=== PATIENT | female | born 1965 | race Caucasian/White ===

== ENCOUNTER 2019-10-24 07:36 | Emergency (ER) | payer OTHER ==
[~2019-10-24] VITALS: Ht 162.6 cm; Wt 122.7 kg
[2019-10-24 07:51] VITALS: BP 108/59
--- NOTE | 2019-10-24 07:52 | PHYS DOC ---
Past History Past Medical History: No Pertinent History Adult General Chief Complaint Chief Complaint: MULTIPLE TRAUMA/FALL HPI HPI Patient is a 54-year-old healthy female who presents status post fall Onset was half an hour prior to arrival, patient was jogging with her dog when the dog ran in front of her and tripped her. She fell on bilateral outstretched hands and subsequently hit her chin on pavement. No loss of consciousness reported Patient was able to self ambulate back home and after her saw laceration on chin, was transported to our ER for further intervention On arrival here, patient complains of left jaw pain, bilateral hand and wrist pain with a noticeable right pinky finger abnormality. She has not taken anything for pain Review of Systems Review of Systems Fourteen body systems of review of systems have been reviewed. See HPI for pertinent positives and negative responses, other coats all other systems are negative, non-pertinent or non-contributory Allergies Allergies Allergies Coded Allergies Type Severity Reaction Last Updated Verified No Known Drug Allergies 10/24/19 No Physical Exam Physical Exam Constitutional: Pt is oriented to person, place, and time. Pt appears well- developed and well-nourished. HENT: Head: Normocephalic and atraumatic. Mouth/Throat: Oropharynx is clear and moist. No hematomas or abrasions to face or scalp. 1 cm laceration to posterior tip of chin, hemostasis achieved via direct pressure OP clear, no blood, no malocclusion, dentition intact Nares clear, no nasal septal hematoma TMs clear, no hemotympanum Midface stable, negative bite test Eyes: Conjunctivae and EOM are normal. Pupils are equal, round, and reactive to light. Neck: C-spine midline nontender, no step-offs Cardiovascular: Normal rate, regular rhythm and normal heart sounds. Pulmonary/Chest: Effort normal and breath sounds normal. No respiratory distress. He has no wheezes. CTA bilaterally Abdominal: Soft. Bowel sounds are normal. Pt exhibits no distension. There is no tenderness. Musculoskeletal: No bony tenderness to extremities, no deformities, full ROM extremities Chest wall stable Pelvis stable and non-tender No vertebral TTP and spine without stepoffs Neurological: Pt is alert and oriented to person, place, and time. Moving all extremities willfully, able to wiggle all fingers and toes. Gross abnormality of right fifth digit of hand consistent with dislocation/break. Pain to palpation of third and fourth metacarpals on left hand Alert and oriented x 3 Sensation grossly intact Skin: Skin is warm and dry. Superficial abrasion to left knee noted Psychiatric: Behavior is appropriate for situation Nursing note and vitals reviewed. EKG EKG [] Radiology/Procedures Radiology/Procedures PROCEDURE: FACIAL BONES 3+V Facial bones 3 views. HISTORY: Left jaw and chin pain after a fall 3 views were taken of the facial bones. Sinuses are clear. A facial fracture is not identified. Orbits appear intact. A definite mandible fracture is not identified but if the mandible is of concern additional mandible views could be of benefit. Nasal bone appears intact on the lateral view. IMPRESSION: 1. No facial fracture noted. Electronically signed by: Adiel Hammer MD (10/24/2019 8:34 AM) [id number] PROCEDURE: HAND BILAT 3V HAND BILAT 3V History: Reason: FOOSH, FALL, BILATERAL HAND PAIN / Spl. Instructions: / History: Technique: 3 views bilateral hands Comparison: None. Findings: Right hand: Acute right fifth proximal phalanx comminuted fracture. There is adjacent soft tissue swelling. Left hand: Acute oblique third metacarpal fracture with posterior displacement of the distal fracture fragment. Acute fourth proximal phalanx base fracture. There is adjacent soft tissue swelling. Impression: 1. Acute left displaced third metacarpal fracture. 2. Acute left fourth proximal phalanx base intra-articular fracture. 3. Acute right fifth proximal phalanx comminuted fracture. Electronically signed by: Renaldo Bryan DO (10/24/2019 8:42 AM) [facility] [place] Course & Med Decision Making Course & Med Decision Making Patient seen and evaluated by myself on immediate ED arrival Vital signs stable, nonemergent appearing Comprehensive history and physical exam obtained, subsequent imaging performed due to abnormalities found on bilateral hands Dr. 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 Florencia Shannon (hand ortho) for evaluation and definitive management Patient simple laceration to inferior chin fixed with Dermabond application ED course discussed with patient, discussed importance of close PCP and hand ort hopedic follow-up Strict return precautions discussed at length, all questions and concerns addressed prior to ER departure Offered patient stronger pain medication; however, patient declined and preferred continued ice and NSAIDs/Tylenol as needed pain Dragon Disclaimer Dragon Disclaimer This electronic medical record was generated, in whole or in part, using a voice recognition dictation system. Laceration Repair Lac Repair Indication: 1.3 cm simple laceration to inferior chin Procedure: The patient was placed in the appropriate position and site irrigated copiously with tap water. Laceration was closed with application of Dermabond with good approximation of the skin borders. Gentle petroleum-based jelly was applied, no covering or dressing applied Total repaired wound length: 1.3 cm. Other Items: Dermabond The patient tolerated the procedure well. Complications: None. Departure Departure: Impression: Primary Impression: Fracture of third metacarpal bone of left hand Additional Impressions: Closed fracture of fourth metacarpal bone of left hand Laceration of chin without complication Disposition: 01 HOME/RESIDENCE PRIOR TO ADM Condition: STABLE Referrals: OBED ALVAREZ MD (PCP) Additional Instructions: As discussed prior to ER departure, please call Dr Persaud, orthopedic hand surgeon, for follow-up in upcoming 7 to 14 days Again, you were diagnosed with the following per radiology report: 1. Acute left displaced third metacarpal fracture. 2. Acute left fourth proximal phalanx base intra-articular fracture. 3. Acute right fifth proximal phalanx comminuted fracture. Justification of Admission: Justification of Admission: Justification of Admission Dx: N/A Problem Qualifiers SUKHDEV DISLA DO Oct 24, 2019 07:52
[2019-10-24] MEDS ORDERED: ACETAMINOPHEN 500 MG TABLET PO ONE (08:15)
--- NOTE | 2019-10-24 08:37 | RAD ---
Facial bones 3 views. HISTORY: Left jaw and chin pain after a fall 3 views were taken of the facial bones. Sinuses are clear. A facial fracture is not identified. Orbits appear intact. A definite mandible fracture is not identified but if the mandible is of concern additional mandible views could be of benefit. Nasal bone appears intact on the lateral view. IMPRESSION: 1. No facial fracture noted. Electronically signed by: Adiel Hammer MD (10/24/2019 8:34 AM) [id number]
--- NOTE | 2019-10-24 08:45 | RAD ---
HAND BILAT 3V History: Reason: FOOSH, FALL, BILATERAL HAND PAIN / Spl. Instructions: / History: Technique: 3 views bilateral hands Comparison: None. Findings: Right hand: Acute right fifth proximal phalanx comminuted fracture. There is adjacent soft tissue swelling. Left hand: Acute oblique third metacarpal fracture with posterior displacement of the distal fracture fragment. Acute fourth proximal phalanx base fracture. There is adjacent soft tissue swelling. Impression: 1. Acute left displaced third metacarpal fracture. 2. Acute left fourth proximal phalanx base intra-articular fracture. 3. Acute right fifth proximal phalanx comminuted fracture. Electronically signed by: Renaldo Bryan DO (10/24/2019 8:42 AM) [facility]
== END 2019-10-24 10:03 | disposition home or self-care (01) ==
LOC: ER 07:36
DX: S62.303A Unspecified fracture of third metacarpal bone, left hand, initial encounter for closed fracture (principal); S62.616A Displaced fracture of proximal phalanx of right little finger, initial encounter for closed fracture; S62.615A Displaced fracture of proximal phalanx of left ring finger, initial encounter for closed fracture; S01.81XA Laceration without foreign body of other part of head, initial encounter; S80.212A Abrasion, left knee, initial encounter; W18.09XA Striking against other object with subsequent fall, initial encounter; Y93.02 Activity, running; Y92.89 Other specified places as the place of occurrence of the external cause; Y99.8 Other external cause status
CPT/HCPCS: 12011; 29125; 70150; 73130; 99284-25